=== PATIENT | male | born 1950 | race Caucasian/White ===

== ENCOUNTER → 2016-12-17 | Outpatient (CLI) | payer MEDICARE ==
[~2016-12-17] MED LIST: ASPI-557 PO; BICA50TA2 PO; BISA10SU61 RECTALLY; CARV6.25 PO; CETI10CA19 PO; CHOL100018 PO; DIVA250T4 PO; DOCU-168 PO; HALO0.5T PO; HYDR-4246 PO; LEVO150T4 PO; LORA0.5T86 PO; MAGN400O4 PO; MIRT15TA PO; OXYC15TA50 PO; POLY17PO6 PO; SENN1TAB79 PEG
--- NOTE | 2016-12-17 14:20 | DI ---
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 TECHNIQUE: FINDINGS: The right and left hip and knee joints demonstrate normal alignment. There is mild degenerative joint space narrowing suggested about the medial joint compartments of both the right and left knee joints and mild joint space narrowing suggested along the medial aspects of the hip joints bilaterally. There are no acute fractures. The ilioischial and iliopectineal lines are intact. No significant joint effusions are demonstrated. There are persistent areas of sclerosis demonstrated within the proximal right and left femoral diaphyses similar to the previous study. If there is concern for progression of bony metastases consider bone scan to better evaluate. IMPRESSION: 1. Stable areas of sclerosis within the proximal right and left femoral diaphyses. If there is concern for progression of bony metastases recommend bone scan to better evaluate. 2. No evidence for pathologic fracture or malalignment. .
== END ==
LOC: IMA 10:40
PROVIDERS: ATTEND Internal Medicine Medical Oncology
DX: C61 Malignant neoplasm of prostate (principal); C78.7 Secondary malignant neoplasm of liver and intrahepatic bile duct; C78.01 Secondary malignant neoplasm of right lung; C79.51 Secondary malignant neoplasm of bone; N18.3 Chronic kidney disease, stage 3 (moderate); Z92.21 Personal history of antineoplastic chemotherapy